=== PATIENT | female | born 1975 | race Caucasian/White ===

== ENCOUNTER 2017-01-05 09:25 | Observation (INO) | payer OTHER ==
[~2017-01-05] VITALS: Ht 152.4 cm; Wt 78.0 kg
[2017-01-05] MEDS ORDERED: PREN1TAB80 PO (09:38)
[2017-01-05 10:24] VITALS: BP 111/67
[2017-01-05 13:17] LABS: GLUCOSE,POINT OF CARE 96 MG/DL (70-110)
[2017-01-05 13:17] LABS: GLUCOSE COMMENT 1 Doctor Notified; GLUCOSE,POINT OF CARE 158 MG/DL (70-110)
[2017-01-05 19:56] LABS: GLUCOSE COMMENT 1 Doctor Notified; GLUCOSE,POINT OF CARE 123 MG/DL (70-110)
== END 2017-01-05 13:25 | disposition home or self-care (01) ==
LOC: 4S 09:25
PROVIDERS: ADMIT Obstetrics & Gynecology; ATTEND Obstetrics & Gynecology
DX: O24.419 Gestational diabetes mellitus in pregnancy, unspecified control (principal); Z3A.37 37 weeks gestation of pregnancy
CPT/HCPCS: 36415; 59025; 82962; 83036; G0378

== ENCOUNTER 2017-01-10 22:38 | Observation (INO) | payer OTHER ==
[~2017-01-10] VITALS: Ht 165 cm; Wt 79.4 kg
[~2017-01-10 22:38] MED LIST: PREN1TAB80 PO
[2017-01-11 00:47] VITALS: BP 111/68
== END 2017-01-11 01:15 | disposition home or self-care (01) ==
LOC: 4S 22:38
PROVIDERS: ADMIT Obstetrics & Gynecology; ATTEND Obstetrics & Gynecology
DX: O62.9 Abnormality of forces of labor, unspecified (principal); Z3A.38 38 weeks gestation of pregnancy
CPT/HCPCS: 59025; G0378 ×2

== ENCOUNTER 2017-01-17 10:10 | Inpatient (IN) | payer OTHER ==
[~2017-01-17] VITALS: Ht 154.9 cm; Wt 78.9 kg
[2017-01-17] MEDS: RINGERS SOLUTION,LACTATED 1,000 ML IV PRN ×2 (10:20→11:50)
[2017-01-17] MEDS ORDERED: RINGERS SOLUTION,LACTATED 1,000 ML IV SCH (10:25)
[2017-01-17] MEDS ORDERED: OXYTOCIN 30 UNITS/LACT RINGERS 500 ML IV PRN (10:25)
[2017-01-17] MEDS ORDERED: METOCLOPRAMIDE HCL 5 MG/ML 2 ML VIAL IVP PRN (10:30)
[2017-01-17] MEDS ORDERED: CITRIC ACID/SODIUM CITRATE 30 ML SOLUTION UDCUP PO PRN (10:30)
[2017-01-17] MEDS: FentaNYL CITRATE-PF 100 MCG/2 ML VIAL IVP PRN ×2 (10:40→10:45)
[2017-01-17 11:23] LABS: BASOPHILS % (AUTO) 0.3 % (0.0-2.0); EOSINOPHILS % (AUTO) 0.1 % (1.0-6.0); HEMATOCRIT 36.6 % (36-46); HEMOGLOBIN 11.9 g/dL (12.0-16.0); LYMPHOCYTES % (AUTO) 15.6 % (22.0-44.0); MEAN CORPUSCULAR HEMOGLOBIN 27.7 pg (26.0-34.0); MEAN CORPUSCULAR HGB CONC 32.5 G/dL (31.0-37.0); MEAN CORPUSCULAR VOLUME 85 fL (80-100); MONOCYTES # (AUTO) 0.8 K/uL (0.1-1.0); MONOCYTES % (AUTO) 6.3 % (2.0-9.0); NEUTROPHILS % (AUTO) 77.7 % (40.0-70.0); RED BLOOD CELL COUNT(AUTO) 4.29 MIL/uL (4.00-5.20); RED CELL DISTRIBUTION WIDTH 15.4 % (11.5-14.5); WHITE BLOOD COUNT (AUTO) 12.9 K/uL (4.5-11.0)
[2017-01-17] MEDS ORDERED: FentaNYL/BUPIV 0.125%/NS/PF 200 ML ED ONE (11:25)
[2017-01-17] MEDS ORDERED: FentaNYL CITRATE-PF 100 MCG/2 ML VIAL ONE (11:26)
[2017-01-17] MEDS ORDERED: LIDOCAINE HCL 2%/EPI 1:200,000/PF 10 ML VIAL ONE (11:26)
[2017-01-17 15:07] LABS: GLUCOSE,POINT OF CARE 89 MG/DL (70-110)
[2017-01-17] MEDS ORDERED: CeFAZolin 2 GM/DEXTROSE 50 ML IV ONE (16:09)
[2017-01-17] MEDS ORDERED: LANOLIN 7 GM OINTMENT TP PRN (16:45)
[2017-01-17] MEDS ORDERED: ACETAMINOPHEN/CODEINE 300-30 MG TABLET PO PRN (16:45)
[2017-01-17] MEDS: GLYCERIN/WITCH HAZEL LEAF 40 PADS JAR TP PRN (16:53)
[2017-01-17] MEDS: BENZOCAINE 20%/MENTHOL 56 GM SPRAY CANISTER TP PRN (16:54)
[2017-01-17] MEDS: IBUPROFEN 800 MG TABLET PO SCH (18:16)
[2017-01-17] MEDS ORDERED: OXYGEN THERAPY IH SCH (20:00)
[2017-01-17] MEDS: ACETAMINOPHEN/CODEINE 300-30 MG TABLET PO PRN (20:21)
[2017-01-17] MEDS: MAGNESIUM HYDROXIDE SUSPENSION 30 ML UDCUP PO SCH (22:29)
[2017-01-18] MEDS: IBUPROFEN 800 MG TABLET PO SCH ×3 (00:34→13:27)
[2017-01-18] MEDS: MAGNESIUM HYDROXIDE SUSPENSION 30 ML UDCUP PO SCH (09:29)
[2017-01-18] MEDS ORDERED: IBUP-2070 PO (11:15)
[2017-01-18] MEDS ORDERED: DSS100 PO (11:17)
[2017-01-18] MEDS: ACETAMINOPHEN/CODEINE 300-30 MG TABLET PO PRN (14:37)
[2017-01-18] MEDS: BENZOCAINE 20%/MENTHOL 56 GM SPRAY CANISTER TP PRN (14:38)
[2017-01-18] MEDS: GLYCERIN/WITCH HAZEL LEAF 40 PADS JAR TP PRN (14:38)
== END 2017-01-18 16:35 | disposition home or self-care (01) | DRG 775 ==
LOC: 4S 10:10 → OBSVTOIN 10:10
PROVIDERS: ADMIT Obstetrics & Gynecology; ATTEND Obstetrics & Gynecology
PROC: 10E0XZZ Delivery of Products of Conception, External Approach (ICD-10-PCS; principal; 2017-01-17)
PROC: 10907ZC Drainage of Amniotic Fluid, Therapeutic from Products of Conception, Via Natural or Artificial Opening (ICD-10-PCS; 2017-01-17)
PROC: 0KQM0ZZ Repair Perineum Muscle, Open Approach (ICD-10-PCS; 2017-01-17)
PROC: 0W8NXZZ Division of Female Perineum, External Approach (ICD-10-PCS; 2017-01-17)
PROC: 3E0S3CZ (ICD-10-PCS; 2017-01-17)
PROC: 00HU33Z Insertion of Infusion Device into Spinal Canal, Percutaneous Approach (ICD-10-PCS; 2017-01-17)
DX: O70.1 Second degree perineal laceration during delivery (principal); Z37.0 Single live birth; Z3A.39 39 weeks gestation of pregnancy
CPT/HCPCS: 82962; J0690; J2590; J3010; J3490; J7120